=== PATIENT | male | born 1985 | race Caucasian/White ===

== ENCOUNTER 2020-11-07 17:21 | Emergency (ER) | payer OTHER ==
[2020-11-08 00:32] LABS: BUN/CREATININE RATIO 7 (0-10)
[2020-11-08 00:50] LABS: HEMOGLOBIN 15.2 gm/dl (14.0-17.5); RED BLOOD COUNT 5.37 M/UL (4.20-5.50); WHITE BLOOD COUNT 11.2 K/UL (4.5-11.0)
== END 2020-11-08 05:14 | disposition home or self-care (01) ==
LOC: ER1 17:21
PROVIDERS: Emergency Medicine; Family Medicine
DX: F32.9 Major depressive disorder, single episode, unspecified (principal); G47.33 Obstructive sleep apnea (adult) (pediatric); Z20.822 Contact with and (suspected) exposure to COVID-19; I10 Essential (primary) hypertension; F17.200 Nicotine dependence, unspecified, uncomplicated
CPT/HCPCS: 0240U; 80053; 80307; 81001; 83735; 85025; 93005; 99285; G0480

== ENCOUNTER → 2021-04-08 | Outpatient (CLI) | payer OTHER | LOC: SLEEP 14:10 | DX: G47.33 Obstructive sleep apnea (adult) (pediatric) (principal); G47.13 Recurrent hypersomnia | CPT/HCPCS: 95810 ==